=== PATIENT | male | born 1995 | race Caucasian/White ===

== ENCOUNTER 2022-07-11 17:46 | Emergency (ER) | payer OTHER ==
[~2022-07-11] VITALS: Ht 177.8 cm; Wt 81.0 kg
== END 2022-07-11 21:08 | disposition home or self-care (01) ==
LOC: ED 17:46
DX: S82.51XA Displaced fracture of medial malleolus of right tibia, initial encounter for closed fracture (principal); X58.XXXA Exposure to other specified factors, initial encounter; F43.10 Post-traumatic stress disorder, unspecified; Z88.0 Allergy status to penicillin
CPT/HCPCS: 29515; 73610; 99283-25

== ENCOUNTER 2023-02-19 13:35 | Emergency (ER) | payer OTHER ==
[~2023-02-19] VITALS: Ht 177.8 cm; Wt 79.7 kg
--- OUTSIDE RECORDS SUMMARY | ~2023-02-19 | XMS | Continuity of Care Document ---
Demographics + + + | Address | NO PERMANENT ADDRESS | | | [place] [address] | + + + | Preferred Language | Unknown | + + + | Marital Status | Never | + + + | Zoroastrianism Affiliation | Unknown | + + + | Race | White | + + + | Ethnic Group | Not or | + + + Author + + + | Author | [facility] | + + + | Organization | [facility] | + + + | Address | [address] | | | [place] [address] | + + + | Phone | | + + + Care Team Providers + + + + | Care Staffing Executive Name | Role | Phone | + + + + Unavailable | Unavailable | + + + + Unavailable | Unavailable | + + + + Allergies and Intolerances + + + + + + | date | description | facility | reaction | severity | + + + + + + | (no date) | Urticaria | [facility] | (no reaction) | (no severity) | | | [facility] | | | + + + + + + | (no date) | Amoxicillin | [facility] | (no reaction) | (no severity) | | | | [facility] | | | + + + + + + | (no date) | Penicillin g | [facility] | (no reaction) | (no severity) | | | | [facility] | | | + + + + + + | (no date) | Amoxicillin | [facility] | (no reaction) | (no severity) | | | [facility] | | | + + + + + + | (no date) | Penicillin g | [facility] | (no reaction) | (no severity) | | | | [facility] | | | + + + + + + | (no date) | Amoxicillin | [facility] | (no reaction) | (no severity) | | | | [facility] | | | + + + + + + | (no date) | Penicillin g | [facility] | (no reaction) | (no severity) | | | | [facility] | | | + + + + + + Encounters No information. Functional Status No information. Immunizations No information. Medications No information. Problems + + + + | date | description | facility | + + + + | 2022-07-11 00:00 | Avulsion fracture of ankle | [facility] | | | | | + + + + Procedures No information. Results/Labs No information. Social History + + + + | date | description | facility | + + + + | 2022-07-11 00:00 | Unknown if ever smoked | [facility] | + + + + Vital Signs + + + +---------+ | date | measurement | value | units | + + + +---------+ | 2022-07-11 00:00 | BMI | 25.6 | kg/m2 | + + + +---------+ | 2022-07-11 00:00 | BP_diastolic | 94 | mmHg | + + + +---------+ | 2022-07-11 00:00 | BP_systolic | 155 | mmHg | + + + +---------+ | 2022-07-11 00:00 | heart_rate | 91 | /min | + + + +---------+ | 2022-07-11 00:00 | height_metric | 177.8 | cm | + + + +---------+ | 2022-07-11 00:00 | height_standard | 70 | in | + + + +---------+ | 2022-07-11 00:00 | o2_saturation | 97 | % | + + + +---------+ | 2022-07-11 00:00 | respiration_rate | 17 | /min | + + + +---------+ | 2022-07-11 00:00 | temperature_metric | 37 | C | | | | | | + + + +---------+ | 2022-07-11 00:00 | | 98.6 | F | | | temperature_standar | | | | | d | | | + + + +---------+ | 2022-07-11 00:00 | weight_metric | 81 | kg | + + + +---------+ | 2022-07-11 00:00 | weight_standard | 178.57 | lb | + + + +---------+ | 2022-07-11 00:00 | weight_standard | 178.58 | lb | + + + +---------+"
--- OUTSIDE RECORDS SUMMARY | ~2023-02-19 | XMS | Continuity of Care Document ---
Demographics + + + | Address | NO PERMANENT ADDRESS | | | [place] [address] | + + + | Preferred Language | Unknown | + + + | Marital Status | Never | + + + | Confucianism Affiliation | Unknown | + + + | Race | White | + + + | Ethnic Group | Not or | + + + Author + + + | Author | [facility] | + + + | Organization | [facility] | + + + | Address | [address] | | | [place] [address] | + + + | Phone | | + + + Care Team Providers + + + + | Care Training Executive Name | Role | Phone | [...] 00:00 | Avulsion fracture of ankle | [facility] | | | | | + + + + Procedures No information. Results/Labs No information. Social History + + + + | date | description | facility | + + + + | 2022-07-11 00:00 | Unknown if ever smoked | [facility] | + + + + Vital Signs [...]
[2023-02-19 13:57] VITALS: BP 109/64
[2023-02-19] MEDS ORDERED: ADVIL200 M1 PO (14:03)
[2023-02-19] MEDS ORDERED: TYLOPHEN500 MG PO (14:03)
== END 2023-02-19 15:02 | disposition home or self-care (01) ==
LOC: ED 13:35
DX: S60.512A Abrasion of left hand, initial encounter (principal); S60.511A Abrasion of right hand, initial encounter; V00.131A Fall from skateboard, initial encounter; Y93.51 Activity, roller skating (inline) and skateboarding; Z23 Encounter for immunization; J45.909 Unspecified asthma, uncomplicated
CPT/HCPCS: 90471; 90715; 99283-25

== ENCOUNTER 2025-01-10 22:09 | Emergency (ER) | payer OTHER ==
[~2025-01-10] VITALS: Ht 177.8 cm; Wt 78.0 kg
[~2025-01-10 22:09] MED LIST: ADVIL200 M1 PO; TYLOPHEN500 MG PO
[2025-01-10 23:42] VITALS: BP 127/73
[2025-01-10] MEDS ORDERED: ACETAMINOPHEN 500 MG TAB PO ONE (23:45)
== END 2025-01-10 23:42 | disposition home or self-care (01) ==
LOC: ED 22:09
DX: S01.81XA Laceration without foreign body of other part of head, initial encounter (principal); F43.10 Post-traumatic stress disorder, unspecified; J45.909 Unspecified asthma, uncomplicated; X58.XXXA Exposure to other specified factors, initial encounter; Z88.0 Allergy status to penicillin
CPT/HCPCS: 99282; A9270